=== PATIENT | male | born 1935 | race Caucasian/White ===

== ENCOUNTER 2019-04-20 13:57 | Inpatient (IN) ==
[2019-04-20] MEDS ORDERED: 0.9 % Sodium Chloride 1,000 ML IVC SCH (14:15)
[2019-04-20] MEDS ORDERED: Piperacillin/Tazobactam 3.375 GM in Water for inj. (sterile) 20 ML IVP ONE (14:31)
[2019-04-20] MEDS ORDERED: 0.9 % Sodium Chloride 1,000 ML IVC ONE (14:31)
[2019-04-20] MEDS ORDERED: Acetaminophen 650 MG RECTAL SUPP RC ONE (14:38)
[2019-04-20] MEDS ORDERED: Piperacillin/Tazobactam 3.375 GM in 0.9 % Sodium Chloride Mini Bag 100 ML IVPB ONE (14:39)
[2019-04-20 14:40] LABS: Basophils % 0.3 %; Hematocrit 42.3 % (37.5-50.1); Immature Granulocytes % 0.5 % (0-4); Lymphocytes # 1.2 K/mcL (0.6-4.6); Mean Corpuscular HGB Conc 33.1 g/dL (31.6-35.5); Mean Corpuscular Volume 93.6 fL (83.0-100.0); Mean Platelet Volume 9.6 fL (9.4-12.4); Monocytes # 0.7 K/mcL (0.0-1.3); Monocytes % 10.3 %; Neutrophils # 4.5 K/mcL (1.6-8.9); Platelet Count 157 K/mcL (140-400); Red Blood Count 4.52 M/mcL (4.19-5.50); Red Cell Distribution Width 13.4 % (11.5-14.5); Segmented Neutrophils % 69.9 %; White Blood Count 6.4 K/mcL (4.3-11.1)
[2019-04-20 14:50] LABS: INR 2.8; Prothrombin Time 31.4 Seconds (9.4-12.1)
[2019-04-20 14:51] LABS: Bilirubin,Urine Negative (Negative); Blood,Urine Moderate (Negative); Clarity,Urine Clear (Clear); Color,Urine Yellow (Yellow); Glucose,Urine (UA) Normal (Normal); Ketones,Urine Negative (Negative); Leukocyte Esterase,Urine Trace (Negative); Nitrite,Urine Positive (Negative); PH,Urine 5.5 pH Units (5.0-8.0); Protein,Urine 100 mg/dL (Neg-Trace); Urobilinogen,Urine Normal (Normal)
[2019-04-20 14:52] LABS: Bacteria,Urine Many per hpf (None-Few); Hyaline Casts,Urine None Seen per lpf (None-Few); Squamous Epithelial Cell,Urine Many per lpf (None-Few)
[2019-04-20 14:53] LABS: Activated Partial Thrombo Time 41.9 Seconds (26.0-36.0)
[2019-04-20 14:55] LABS: Alanine Aminotransferase 31 Units/L (7-52); Albumin 4.1 g/dL (3.5-5.7); Albumin/Globulin Ratio 1.4 (1.1-2.2); Alkaline Phosphatase 51 Units/L (34-104); Aspartate Amino Transferase 31 Units/L (13-39); BUN/Creatinine Ratio 17 (6-26); Bilirubin,Direct 0.4 mg/dL (0.0-0.2); Bilirubin,Total 1.4 mg/dL (0.3-1.0); Blood Urea Nitrogen 23 mg/dL (8-23); Calcium 8.9 mg/dL (8.6-10.3); Carbon Dioxide 29 mEq/L (23-29); Chloride 103 mEq/L (98-107); Glucose 177 mg/dL (70-105); Magnesium 1.9 mg/dL (1.6-2.6); Osmolality,Calculated 292 (280-300); Phosphorous 2.1 mg/dL (2.7-4.5); Potassium 4.2 mEq/L (3.5-5.1); Sodium 137 mEq/L (136-145); Total Protein 7.1 g/dL (6.4-8.9); Troponin I 0.08 ng/mL (< 0.04); eGFR For African Americans > 60 (> 60); eGFR For Non-African Americans 51 (> 60)
--- NOTE | 2019-04-20 14:55 | Emergency Department Note ---
Disposition Clinical Impression: Sepsis Qualifiers: Sepsis type: sepsis due to unspecified organism Sepsis acute organ dysfunction status: with acute organ dysfunction Severe sepsis acute organ dysfunction type: encephalopathy Severe sepsis shock status: without septic shock Qualified Code(s): A41.9 - Sepsis, unspecified organism UTI (urinary tract infection) Qualifiers: Urinary tract infection type: acute cystitis Hematuria presence: with hematuria Qualified Code(s): N30.01 - Acute cystitis with hematuria Pneumonia Qualifiers: Pneumonia type: due to unspecified organism Laterality: left Lung location: lower lobe of lung Qualified Code(s): J18.1 - Lobar pneumonia, unspecified organism Atrial fibrillation Qualifiers: Atrial fibrillation type: paroxysmal Qualified Code(s): I48.0 - Paroxysmal atrial fibrillation Altered mental status Qualifiers: Altered mental status type: unspecified Qualified Code(s): R41.82 - Altered mental status, unspecified Disposition: Admitted As Inpatient Condition: Fair Time of Disposition: 16:40 General Adult HPI - General Chief complaint: ED Neuro Symptoms/Deficit Stated complaint: possible stroke Time Seen by Provider: 04/20/19 14:01 Source: patient, family Mode of arrival: EMS Limitations: no limitations Nursing Notes Reviewed: Yes Vital Signs Reviewed: Yes - History of Present Illness HPI Narrative: Patient is a 83-year-old male with a past medical history of hypertension, prostate cancer, diabetes as well as sepsis presents to the ED for evaluation of altered mental status has been going on for the past 24 hours. Patient is brought in by EMS with reports of disorientation and confusion that way first noticed yesterday afternoon they state that he is alert and oriented 3 there was initially concern for possible stroke. Upon patient's 's arrival she states that the patient has been having cold-like symptoms over the past week with cough and congestion and states that he was seen on April [id number] by his PCP and diagnosed with virus then seen recently at urgent care and started on antibiotics for cough. Denying any localizing deficits such as weakness, numbness or tingling. Pain Scale: 0 - Related Data Home Medications Medication Instructions Recorded Confirmed Diltiazem CD (24hr) [Cardizem CD] 180 mg PO QPM 04/20/19 04/20/19 Fish Oil/Dha/Epa [Fish Oil 1,200 1 each PO DAILY 04/20/19 04/20/19 mg Fish Oil] Furosemide [Lasix] 20 mg PO DAILY 04/20/19 04/20/19 Lisinopril [Zestril] 5 mg PO DAILY 04/20/19 04/20/19 Oxybutynin Chloride [Ditropan XL] 15 mg PO DAILY 04/20/19 04/20/19 Terazosin [Hytrin] 5 mg PO QPM 04/20/19 04/20/19 Warfarin Sodium [Coumadin] 6 mg PO Q48H 04/20/19 04/20/19 Warfarin Sodium [Coumadin] 9 mg PO Q48H 04/20/19 04/20/19 Allergies Allergy/AdvReac Type Severity Reaction Status Date / Time No Known Drug Allergies Allergy See Verified 05/09/15 10:56 Comments Limitations: ROS unobtainable due to patients medical condition Past Medical History - Past Medical History Medical history: Reports: hypertension Surgical history: Reports: other Psychiatric history: Reports: no psych history - Social History Smoking Status: Former smoker Smokeless Tobacco Status: No Alcohol use: Reports: none Drug use: Reports: none Physical Exam - General Limitations: altered mental status General appearance: alert, obese - Head Head exam: atraumatic, normocephalic, normal inspection - Eye Eye exam: Present: normal appearance, PERRL, EOMI - ENT ENT exam: normal exam, normal oropharynx, mucous membranes dry - Neck Neck exam: Present: normal inspection, full ROM, trachea midline - Chest Chest inspection: Present: normal inspection, symmetric chest wall rise - Respiratory Respiratory exam: Present: normal lung sounds bilaterally, wheezes (faint wheeze in bases). Absent: respiratory distress - Cardiovascular Cardiovascular exam: Present: tachycardia, irregular rhythm, +S1, +S2 - Abdominal Exam Abdominal exam: Present: soft, Non-Tender, distention, normal bowel sounds, other (umbilical hernia) - Extremities Exam Extremities exam: Present: normal inspection, full ROM. Absent: tenderness, pedal edema - Back Exam Back exam: Present: normal inspection. Absent: tenderness - Neurological Exam Neurological exam: Present: alert, other (oriented x 2) - Expanded Neurological Exam Patient oriented to: Present: person, place Speech: Present: fluid speech Cranial nerves: EOM function (II, III, IV, ): Normal, facial sensation (V): Normal, facial palsy (VII): Normal, gag reflex (IX): Normal, spinal accessory function (XI): Normal, tongue deviation (XII): Normal Cerebellar function: normal gait Motor strength - LUE: 5/5 Motor strength - RUE: 5/5 Motor strength - LLE: 5/5 Motor strength - RLE: 5/5 Sensory exam upper extremity: light touch: Normal Sensory exam lower extremity: light touch: Normal Coma Scale Eye Opening: Spontaneous Coma Scale Motor Response: Obeys Commands Coma Scale Verbal Response: Confused Coma Scale Total: 14 - Psychiatric Psychiatric exam: Present: normal affect, normal mood - Skin Skin exam: Present: warm, dry, intact, normal color Course Course Narrative: Patient is a 3 female presenting for altered mental status initially there was concern for stroke however patient is febrile and tachycardic episode recent infectious symptoms. His neurological exam other than his orientation appears to be intact. Possible source is pneumonia versus given his history. He also undergo CT scan at a pelvis given his history of septic kidney stones which his states he did not have any abdominal or back symptoms at that time. She states that he has appeared similar in the past when he was sick. Upon review of his medical records appears is on Coumadin for A. fib this EKG is showing atrial fibrillation a rate of 1:30 which is suspect is due to fever and sepsis. Receive a 1 L bolus of fluids and he will be reevaluated. Rectal tylenol for fever. - Reevaluation(s) Reevaluation #1: Patient's lab work was significant for an elevation of his troponin of 0.08 which I suspect is due to demand ischemia. His chest x-ray was read as negative by the radiologist however upon my review not completely sure that there is not a pneumonia in the left lower lobe due to cerumen difficulty with identifying the left heart border. Patient's urine is also positive for infection. He was started on broad-spectrum antibiotic coverage received a total of a 1 L bolus. He received a full dose of rectal Tylenol and was continued to be febrile sees given a dose of rectal aspirin. Given that his blood pressure is been stable and he is due for his afternoon meds he was also given a 10 mg IV dose of Cardizem for his A. fib with RVR which continues to be in the 130s. I discussed this with the patient's family member at bedside as well as the patient continues to be disoriented discussed with the hospitalist who accepted the patient for admission for further evaluation and treatment. Time: 17:31 Vital Signs Temperature 103.1 F H 04/20/19 14:11 Pulse Rate 130 04/20/19 14:11 Respiratory Rate 26 04/20/19 14:11 Blood Pressure 159/88 04/20/19 14:11 O2 Sat by Pulse Oximetry 93 04/20/19 14:11 Temperature 102.4 F H 04/20/19 16:02 Pulse Rate 127 04/20/19 16:02 Respiratory Rate 24 04/20/19 16:02 Blood Pressure 130/86 04/20/19 16:02 O2 Sat by Pulse Oximetry 93 04/20/19 16:02 Oxygen Delivery Oxygen Delivery Nasal Cannula Medical Decision Making - Medical Records Medical records reviewed: Yes I reviewed the patient's medical records. - Lab Data Lab results reviewed: Yes I reviewed the patient's lab results. Result diagrams: 04/21/19 02:08 04/21/19 02:08 Lab Results 04/20/19 04/20/19 04/20/19 Range/Units 14:10 14:10 14:10 WBC 6.4 (4.3-11.1) K/mcL RBC 4.52 (4.19-5.50) M/mcL Hgb 14.0 (12.9-16.9) g/dL Hct 42.3 (37.5-50.1) % MCV 93.6 (83.0-100.0) fL MCH 31.0 (28.0-33.3) pg MCHC 33.1 (31.6-35.5) g/dL RDW 13.4 (11.5-14.5) % Plt Count 157 (140-400) K/mcL MPV 9.6 (9.4-12.4) fL Immature Gran % 0.5 (0-4) % Seg Neutrophils % 69.9 % Lymphocytes % 19.0 % Monocytes % 10.3 % Eosinophils % 0.0 % Basophils % 0.3 % Neutrophils # 4.5 (1.6-8.9) K/mcL Lymphocytes # 1.2 (0.6-4.6) K/mcL Monocytes # 0.7 (0.0-1.3) K/mcL Eosinophils # 0.0 (0.0-0.6) K/mcL Basophils # 0.0 (0.0-0.2) K/mcL PT 31.4 H (9.4-12.1) Seconds INR 2.8 APTT 41.9 H (26.0-36.0) Seconds Sodium (136-145) mEq/L Potassium (3.5-5.1) mEq/L Chloride (98-107) mEq/L Carbon Dioxide (23-29) mEq/L BUN (8-23) mg/dL Creatinine (0.70-1.30) mg/dL Est GFR ( Amer) (> 60) Est GFR (Non-Af Amer) (> 60) BUN/Creatinine Ratio (6-26) Glucose (70-105) mg/dL Calculated Osmolality (280-300) Lactic Acid (0.5-2.2) mmol/L Calcium (8.6-10.3) mg/dL Phosphorus (2.7-4.5) mg/dL Magnesium (1.6-2.6) mg/dL Total Bilirubin (0.3-1.0) mg/dL Direct Bilirubin (0.0-0.2) mg/dL Indirect Bilirubin (0.0-1.2) mg/dL AST (13-39) Units/L ALT (7-52) Units/L Alkaline Phosphatase (34-104) Units/L Troponin I (< 0.04) ng/mL B-Natriuretic Peptide 310 H (Less than 100) pg/mL Serum Total Protein (6.4-8.9) g/dL Albumin (3.5-5.7) g/dL Globulin (2.4-3.5) g/dL Albumin/Globulin Ratio (1.1-2.2) Procalcitonin (0.00-0.15) ng/mL Urine Color (Yellow) Urine Clarity (Clear) Urine pH (5.0-8.0) pH Units Ur Specific [place] (1.010-1.025) Urine Protein (Neg-Trace) mg/dL Urine Glucose (UA) (Normal) mg/dL Urine Ketones (Negative) mg/dL Urine Blood (Negative) Urine Nitrite (Negative) Urine Bilirubin (Negative) Urine Urobilinogen (Normal) mg/dL Ur Leukocyte Esterase (Negative) Urine Microscopic RBC (0-3) per hpf Urine Microscopic WBC (0-3) per hpf Ur Squamous Epith Cells (None-Few) per lpf Urine Bacteria (None-Few) per hpf Hyaline Casts (None-Few) per lpf Ur Culture Indicated? (NO) 04/20/19 04/20/19 04/20/19 Range/Units 14:10 14:10 14:40 WBC (4.3-11.1) K/mcL RBC (4.19-5.50) M/mcL Hgb (12.9-16.9) g/dL Hct (37.5-50.1) % MCV (83.0-100.0) fL MCH (28.0-33.3) pg MCHC (31.6-35.5) g/dL RDW (11.5-14.5) % Plt Count (140-400) K/mcL MPV (9.4-12.4) fL Immature Gran % (0-4) % Seg Neutrophils % % Lymphocytes % % Monocytes % % Eosinophils % % Basophils % % Neutrophils # (1.6-8.9) K/mcL Lymphocytes # (0.6-4.6) K/mcL Monocytes # (0.0-1.3) K/mcL Eosinophils # (0.0-0.6) K/mcL Basophils # (0.0-0.2) K/mcL PT (9.4-12.1) Seconds INR APTT (26.0-36.0) Seconds Sodium 137 (136-145) mEq/L Potassium 4.2 (3.5-5.1) mEq/L Chloride 103 (98-107) mEq/L Carbon Dioxide 29 (23-29) mEq/L BUN 23 (8-23) mg/dL Creatinine 1.33 H (0.70-1.30) mg/dL Est GFR ( Amer) > 60 (> 60) Est GFR (Non-Af Amer) 51 L (> 60) BUN/Creatinine Ratio 17 (6-26) Glucose 177 H (70-105) mg/dL Calculated Osmolality 292 (280-300) Lactic Acid 1.2 (0.5-2.2) mmol/L Calcium 8.9 (8.6-10.3) mg/dL Phosphorus 2.1 L (2.7-4.5) mg/dL Magnesium 1.9 (1.6-2.6) mg/dL Total Bilirubin 1.4 H (0.3-1.0) mg/dL Direct Bilirubin 0.4 H (0.0-0.2) mg/dL Indirect Bilirubin 1.0 (0.0-1.2) mg/dL AST 31 (13-39) Units/L ALT 31 (7-52) Units/L Alkaline Phosphatase 51 (34-104) Units/L Troponin I 0.08 H* (< 0.04) ng/mL B-Natriuretic Peptide (Less than 100) pg/mL Serum Total Protein 7.1 (6.4-8.9) g/dL Albumin 4.1 (3.5-5.7) g/dL Globulin 3.0 (2.4-3.5) g/dL Albumin/Globulin Ratio 1.4 (1.1-2.2) Procalcitonin (0.00-0.15) ng/mL Urine Color Yellow (Yellow) Urine Clarity Clear (Clear) Urine pH 5.5 (5.0-8.0) pH Units Ur Specific [place] 1.020 (1.010-1.025) Urine Protein 100 H (Neg-Trace) mg/dL Urine Glucose (UA) Normal (Normal) mg/dL Urine Ketones Negative (Negative) mg/dL Urine Blood Moderate H (Negative) Urine Nitrite Positive A (Negative) Urine Bilirubin Negative (Negative) Urine Urobilinogen Normal (Normal) mg/dL Ur Leukocyte Esterase Trace H (Negative) Urine Microscopic RBC 3-5 H (0-3) per hpf Urine Microscopic WBC 3-5 H (0-3) per hpf Ur Squamous Epith Cells Many H (None-Few) per lpf Urine Bacteria Many H (None-Few) per hpf Hyaline Casts None Seen (None-Few) per lpf Ur Culture Indicated? YES A (NO) 04/20/19 Range/Units 15:09 WBC (4.3-11.1) K/mcL RBC (4.19-5.50) M/mcL Hgb (12.9-16.9) g/dL Hct (37.5-50.1) % MCV (83.0-100.0) fL MCH (28.0-33.3) pg MCHC (31.6-35.5) g/dL RDW (11.5-14.5) % Plt Count (140-400) K/mcL MPV (9.4-12.4) fL Immature Gran % (0-4) % Seg Neutrophils % % Lymphocytes % % Monocytes % % Eosinophils % % Basophils % % Neutrophils # (1.6-8.9) K/mcL Lymphocytes # (0.6-4.6) K/mcL Monocytes # (0.0-1.3) K/mcL Eosinophils # (0.0-0.6) K/mcL Basophils # (0.0-0.2) K/mcL PT (9.4-12.1) Seconds INR APTT (26.0-36.0) Seconds Sodium (136-145) mEq/L Potassium (3.5-5.1) mEq/L Chloride (98-107) mEq/L Carbon Dioxide (23-29) mEq/L BUN (8-23) mg/dL Creatinine (0.70-1.30) mg/dL Est GFR ( Amer) (> 60) Est GFR (Non-Af Amer) (> 60) BUN/Creatinine Ratio (6-26) Glucose (70-105) mg/dL Calculated Osmolality (280-300) Lactic Acid (0.5-2.2) mmol/L Calcium (8.6-10.3) mg/dL Phosphorus (2.7-4.5) mg/dL Magnesium (1.6-2.6) mg/dL Total Bilirubin (0.3-1.0) mg/dL Direct Bilirubin (0.0-0.2) mg/dL Indirect Bilirubin (0.0-1.2) mg/dL AST (13-39) Units/L ALT (7-52) Units/L Alkaline Phosphatase (34-104) Units/L Troponin I (< 0.04) ng/mL B-Natriuretic Peptide (Less than 100) pg/mL Serum Total Protein (6.4-8.9) g/dL Albumin (3.5-5.7) g/dL Globulin (2.4-3.5) g/dL Albumin/Globulin Ratio (1.1-2.2) Procalcitonin 0.04 (0.00-0.15) ng/mL Urine Color (Yellow) Urine Clarity (Clear) Urine pH (5.0-8.0) pH Units Ur Specific [place] (1.010-1.025) Urine Protein (Neg-Trace) mg/dL Urine Glucose (UA) (Normal) mg/dL Urine Ketones (Negative) mg/dL Urine Blood (Negative) Urine Nitrite (Negative) Urine Bilirubin (Negative) Urine Urobilinogen (Normal) mg/dL Ur Leukocyte Esterase (Negative) Urine Microscopic RBC (0-3) per hpf Urine Microscopic WBC (0-3) per hpf Ur Squamous Epith Cells (None-Few) per lpf Urine Bacteria (None-Few) per hpf Hyaline Casts (None-Few) per lpf Ur Culture Indicated? (NO) - Radiology Data Radiology results reviewed: Yes I reviewed the patient's radiology results. Chest X-Ray 04/20/19 14:11 IMPRESSION: 1. Interval resolution of previously seen streaky opacities in the left midlung zone. 2. The visible lungs are without pneumothorax, pleural effusion or new focal airspace opacity. 3. Stable cardiomegaly. D/ / Aric Llanos / Aric Llanos Interpreting Provider: Aric Llanos Abdomen/Pelvis CT 04/20/19 14:14 IMPRESSION: 1. Mild ileus involving the small bowel in the left abdomen. No evidence of bowel obstruction or perforation. 2. Prostatomegaly. 3. Mild nonspecific mesenteric thickening with scattered mildly prominent lymph nodes. D/ / 04/20/2019 15:37:53 Maryellen Menjivar MD / [facility] Interpreting Provider: Maryellen Menjivar MD Head CT 04/20/19 14:14 IMPRESSION: No acute intracranial abnormality. Mucosal thickening paranasal sinuses. D/ / Pradeep Dillard / Pradeep Dillard Interpreting Provider: Pradeep Dillard - EKG Data EKG #1 EKG attestation: Yes I reviewed and interpreted this EKG. EKG results narrative: EKG done at 14:03 shows atrial fibrillation a rate 130 bpm. Normal axis. Intervals within normal limits. New when compared to old EKG in April 2016 however upon review of patient's medical record he does have history of atrial fibrillation. Critical Care Time Critical Care Time: Yes Total Critical Care Time: 35 Attestation: see attestation Attestation Statement - Attestation Attestation: I examined this patient and my medical decision-making was reviewed with the Resident Physician. I agree with the documented findings, disposition and treatment plan as described except to the extent set forth below. Patient presents here with some confusion, fever. The patient has had a upper respiratory symptoms, cough. Patient is mildly hypoxic on arrival. The patient does have a history of atrial fibrillation. The patient is found to be in atrial fibrillation with a heart rate around 120 to 1:30 upon arrival. I did review the EKG and agree with the resident's interpretation of atrial fibrillation. Do not see evidence of significant ischemia. The patient at this point I am did have a septic workup done here in the emergency room. Patient does appear to have a mild UTI, the patient possibly could have a early pneumonia. At this point in time however the patient was treated with antibiotics, patient has not no other nuchal rigidity, the patient has no abdominal pain on examination. The patient at this point in time was admitted to the hospitalist. Patient has had no evidence of hypotension here in emergency room. CRITICAL CARE TIME OF 35 MINUTES PERFORMING THIS INDIVIDUAL OUTSIDE OF SEPARATELY BILLABLE PROCEDURES. THIS INCLUDES BEDSIDE EVALUATION, INTERPRETATION OF EKG AND LAB TESTS AND CONSULTATIONS.
[2019-04-20] MEDS ORDERED: Azithromycin 500 MG in 0.9 % Sodium Chloride 250 ML IVPB ONE (15:03)
[2019-04-20] MEDS ORDERED: Ondansetron 4 MG/2 ML VIAL IVP PRN (18:10)
[2019-04-20] MEDS ORDERED: Naloxone 0.4 MG/ML INJ IVP PRN (18:10)
--- NOTE | 2019-04-20 18:35 | Internal Med History&Physical ---
Date of Encounter: 04/20/19 Time of Encounter: 17:00 Internal Medicine - H&P: HPI Admitted From: Emergency Dept Plans for Post Hospital Care: Home History of present illness: Mr. Mora is a 83 year old male with a past medical history of type 2 diabetes, CKD stage III, history of prior nephrolithiasis hypertension who was brought in by his due to concerns for altered mentation. The is currently unavailable to provide any history and patient appears encephalopathic has this history was obtained from the medical records and from the ED records. It appears he was brought in by EMS after his noticed that he was confused the day prior. There were initial concerns of possible stroke however his 's that patient was having chills. Also per report patient was seen by his primary care physician in April 14 for a viral type illness and was recently seen at the urgent care and was prescribed antibiotics for cough. At the ED patient was noted to be meeting criteria for sepsis he remained febrile despite acetaminophen suppositories and aspirin suppositories. His nurse at the ED noted some bright red blood per rectum. CBC was unremarkable BMP revealed slightly elevated serum creatinine 1.33 much improved from his prior baseline ranging from 1.5-2 dating back to 2017, no recent serum creatinine from 2019. Other significant lab finding was his mildly elevated troponin, and his urinalysis suggestive of gram-negative UTI with positive nitrites. His CT head was unremarkable however CT abdomen and pelvis is suggestive of ileus but no obstruction or perforation and prostatomegaly. Past Med Surg Social Fam HX - Past Medical History Medical history: hypertension Additional medical history: prostate cancer Psychiatric history: no psych history - Past Surgical History Surgical History: other Additional surgical history: precancrous spot on cheek and head removed - Social History Smoking Status: Former smoker Smokeless Tobacco Status: No Alcohol use: none Drug use: none - Family History Mother Hx Family Cardiac Disorders: Yes (HTN) Brother Living Status: Still Living Hx Family Cancer: Yes (Prostate) Internal Medicine - H&P: Meds Diltiazem CD (24hr) [Cardizem CD] 180 mg PO QPM 04/20/19 [History] Fish Oil/Dha/Epa [Fish Oil 1,200 mg Fish Oil] 1 each PO DAILY 04/20/19 [History] Furosemide [Lasix] 20 mg PO DAILY 04/20/19 [History] Lisinopril [Zestril] 5 mg PO DAILY 04/20/19 [History] Oxybutynin Chloride [Ditropan XL] 15 mg PO DAILY 04/20/19 [History] Terazosin [Hytrin] 5 mg PO QPM 04/20/19 [History] Warfarin Sodium [Coumadin] 6 mg PO Q48H 04/20/19 [History] Warfarin Sodium [Coumadin] 9 mg PO Q48H 04/20/19 [History] Allergy/AdvReac Type Severity Reaction Status Date / Time No Known Drug Allergies Allergy See Verified 05/09/15 10:56 Comments All Systems PM: A 10-system review of systems was performed and is negative for pertinent findings except as documented above in the HPI. Review of systems: Unable to obtain patient is encephalopathic - Constitutional Vitals: Temp Pulse Resp BP Pulse Ox 100.4 F H 108 22 119/81 93 04/20/19 17:49 04/20/19 17:49 04/20/19 17:49 04/20/19 17:49 04/20/19 17:49 Exam: GENERAL: Mildly distressed, responds to questions somewhat but incoherent SKIN: No skin lesions or rashes, non-jaundiced EYES: Pinpoint but reactive no sclerae icterus HENT: Head atraumatic, no facial asymmetry, frontal and maxillary sinus non- tender, visualized portion oropharynx and mucosa dry NECK: No cervical lymphadenopathy, trachea midline, thyroid is palpable does not appear enlarged LUNGS: Diminished breath sounds likely due to poor respiratory effort no wheeze, rhonchi, rales or crackles. Non labored respirations HEART: Normal rate and rhythm but tachycardic, no murmurs or rubs ABDOMEN: soft, non-tender, distended, bowel sounds x 4 normoactive EXTRMITIES: No LE asymmetry, No LE edema, pedal pulses 1+ and radial pulses 2 + and equal bilaterally NEURO: Responds to commands somewhat but incoherent, responses painful stimuli PSYCH: Deferred Internal Med - H&P Results - Labs CBC & Chem 7: 04/20/19 14:10 04/20/19 14:10 Labs: Short CBC 04/20/19 Range/Units 14:10 WBC 6.4 (4.3-11.1) K/mcL Hgb 14.0 (12.9-16.9) g/dL Hct 42.3 (37.5-50.1) % Plt Count 157 (140-400) K/mcL Neutrophils # 4.5 (1.6-8.9) K/mcL BMP 04/20/19 14:10 Sodium 137 Potassium 4.2 Chloride 103 Carbon Dioxide 29 BUN 23 Creatinine 1.33 H Glucose 177 H Calcium 8.9 Cardiac Enzymes 04/20/19 Range/Units 14:10 Troponin I 0.08 H* (< 0.04) ng/mL Liver Function 04/20/19 Range/Units 14:10 Total Bilirubin 1.4 H (0.3-1.0) mg/dL Direct Bilirubin 0.4 H (0.0-0.2) mg/dL AST 31 (13-39) Units/L ALT 31 (7-52) Units/L Alkaline Phosphatase 51 (34-104) Units/L Albumin 4.1 (3.5-5.7) g/dL Urine 04/20/19 Range/Units 14:40 Urine Color Yellow (Yellow) Urine Clarity Clear (Clear) Urine pH 5.5 (5.0-8.0) pH Units Ur Specific [place] 1.020 (1.010-1.025) Urine Protein 100 H (Neg-Trace) mg/dL Urine Glucose (UA) Normal (Normal) mg/dL - Impressions ITS Impressions Chest X-Ray 04/20/19 14:11 IMPRESSION: 1. Interval resolution of previously seen streaky opacities in the left midlung zone. 2. The visible lungs are without pneumothorax, pleural effusion or new focal airspace opacity. 3. Stable cardiomegaly. D/ / Aric Llanos / Aric Llanos Interpreting Provider: Aric Llanos Abdomen/Pelvis CT 04/20/19 14:14 IMPRESSION: 1. Mild ileus involving the small bowel in the left abdomen. No evidence of bowel obstruction or perforation. 2. Prostatomegaly. 3. Mild nonspecific mesenteric thickening with scattered mildly prominent lymph nodes. D/ / 04/20/2019 15:37:53 Maryellen Menjivar MD / rebecca Interpreting Provider: Maryellen Menjivar MD Head CT 04/20/19 14:14 IMPRESSION: No acute intracranial abnormality. Mucosal thickening paranasal sinuses. D/ / Pradeep Dillard / Pradeep Dillard Interpreting Provider: Pradeep Dillard - Assessment and Plan (1) Sepsis Current Visit: Yes Status: Acute Assessment and plan: Appears secondary to UTI blood cultures urine culture is pending, UA is positive for nitrites most likely gram-negative organism continue Zosyn. Due to recurrence of patient was sent visits to the urgent care center for cough would add levofloxacin for possible pneumonia coverage although chest x-ray was unremarkable but in the setting of dehydration Qualifiers: Sepsis type: sepsis due to unspecified organism Sepsis acute organ dysfunction status: with acute organ dysfunction Severe sepsis acute organ dysfunction type: encephalopathy Severe sepsis shock status: without septic shock Qualified Code(s): A41.9 - Sepsis, unspecified organism; R65.20 - Severe sepsis without septic shock; G93.40 - Encephalopathy, unspecified (2) Acute encephalopathy Current Visit: Yes Status: Acute Assessment and plan: In the setting of sepsis which is been attributed to UTI based on UA. CT head was unremarkable would check ammonia level and TSH tomorrow morning (3) Troponin I above reference range Current Visit: Yes Status: Acute Assessment and plan: Troponin 0.08 on admission will trend (4) A-fib Current Visit: Yes Status: Acute Assessment and plan: On telemetry tachycardic appears he is on warfarin, INR admission is 2.8 and diltiazem continue telemetry Qualifiers: Atrial fibrillation type: paroxysmal Qualified Code(s): I48.0 - Paroxysmal atrial fibrillation (5) Urinary tract infection Current Visit: Yes Status: Acute Assessment and plan: UA revealed positive nitrite culture spending patient on levofloxacin and Zosyn for now Qualifiers: Urinary tract infection type: acute cystitis Hematuria presence: with hematuria Qualified Code(s): N30.01 - Acute cystitis with hematuria (6) DAMION (acute kidney injury) Current Visit: No Status: Acute Assessment and plan: In the setting of severe sepsis we will start patient on gentle hydration at 50 ML's LR, trend BMP (7) DVT prophylaxis Current Visit: Yes Status: Acute Assessment and plan: Heparin subcutaneous - Time Spent With Patient Total time spent is greater than 50% in coordination of care (as documented) at patient's floor/unit and/or counseling patient:
[2019-04-20] MEDS ORDERED: Ringers Solution, Lactated 1,000 ML IVC SCH (18:45)
[2019-04-20] MEDS ORDERED: D5% in Water 1,000 ML IVC PRN (19:08)
[2019-04-20] MEDS ORDERED: *HR* Dextrose 50 % in Water (Syg) 50 ML SYRINGE IVP PRN (19:08)
[2019-04-20] MEDS ORDERED: Dextrose Gel 15 GM/37.5 ML TUBE PO PRN ×2 (19:08)
[2019-04-20] MEDS: levoFLOXacin 500 MG/100 ML 500 MG/100 ML BAG IVPB SCH (19:53)
[2019-04-20] MEDS: Acetaminophen IV 1,000 MG/100 ML INFUS..BTL IVPB SCH (23:48)
[2019-04-20] MEDS: Piperacillin/Tazobactam 3.375 GM in 0.9 % Sodium Chloride Mini Bag 100 ML IVPB SCH (23:51)
[2019-04-21] MEDS ORDERED: *HR* Heparin 5,000 UNIT/ML VIAL SQ SCH
[2019-04-21 02:25] LABS: Basophils % 0.1 %; Hematocrit 38.7 % (37.5-50.1); Hemoglobin 12.8 g/dL (12.9-16.9); Immature Granulocytes % 0.6 % (0-4); Lymphocytes # 1.4 K/mcL (0.6-4.6); Lymphocytes % 21.1 %; Mean Corpuscular HGB Conc 33.1 g/dL (31.6-35.5); Mean Corpuscular Hemoglobin 30.6 pg (28.0-33.3); Mean Corpuscular Volume 92.6 fL (83.0-100.0); Mean Platelet Volume 9.7 fL (9.4-12.4); Monocytes % 13.9 %; Neutrophils # 4.4 K/mcL (1.6-8.9); Platelet Count 135 K/mcL (140-400); Red Blood Count 4.18 M/mcL (4.19-5.50); Red Cell Distribution Width 13.8 % (11.5-14.5); Segmented Neutrophils % 64.3 %; White Blood Count 6.8 K/mcL (4.3-11.1)
[2019-04-21 02:36] LABS: INR 2.7; Prothrombin Time 30.2 Seconds (9.4-12.1)
[2019-04-21 02:43] LABS: BUN/Creatinine Ratio 17 (6-26); Blood Urea Nitrogen 21 mg/dL (8-23); Calcium 8.1 mg/dL (8.6-10.3); Carbon Dioxide 22 mEq/L (23-29); Chloride 108 mEq/L (98-107); Glucose 157 mg/dL (70-105); Magnesium 1.9 mg/dL (1.6-2.6); Osmolality,Calculated 294 (280-300); Potassium 3.8 mEq/L (3.5-5.1); Sodium 139 mEq/L (136-145); eGFR For African Americans > 60 (> 60); eGFR For Non-African Americans 55 (> 60)
[2019-04-21 02:46] LABS: Albumin 3.5 g/dL (3.5-5.7); Albumin/Globulin Ratio 1.3 (1.1-2.2); Bilirubin,Direct 0.5 mg/dL (0.0-0.2); Bilirubin,Indirect 1.1 mg/dL (0.0-1.2); Bilirubin,Total 1.6 mg/dL (0.3-1.0); Globulin 2.7 g/dL (2.4-3.5); Total Protein 6.2 g/dL (6.4-8.9)
[2019-04-21] MEDS: Insulin LISPRO 300 UNITS/3 ML VIAL SQ SCH ×4 (06:43→17:04)
[2019-04-21 07:26] LABS: Estimated Average Glucose 143 mg/dl
[2019-04-21 08:21] LABS: Triiodothyronine (T3) Free 1.74 pg/mL (2.50-3.90)
[2019-04-21] MEDS: Acetaminophen IV 1,000 MG/100 ML INFUS..BTL IVPB SCH ×2 (09:49→16:57)
[2019-04-21] MEDS: Piperacillin/Tazobactam 3.375 GM in 0.9 % Sodium Chloride Mini Bag 100 ML IVPB SCH ×2 (09:51→17:00)
[2019-04-21] MEDS ORDERED: WARFARIN SODIUM 6 MG PO SCH (11:00)
[2019-04-21] MEDS ORDERED: WARFARIN SODIUM 9 MG PO SCH (11:00)
--- NOTE | 2019-04-21 14:49 | Internal Med Progress Note ---
Hospitalist Progress Note - Encounter Date of Encounter: 04/21/19 Time of Encounter: 13:45 - Subjective Interval History: Mr Mora is more alert and conversant today he reports feeling much better. His Nataliia can be reached at [phone]. She did call from the patient has established with the urologist given his history of prostate cancer and has appointments in the upcoming months as outpatient. Patient does admit to history of urinary incontinence since diagnosed with prostate cancer years ago GEN: Denies fever, chills or malaise HEENT: Denies headache blurriness, or dysphagia RESP: Denies SOB or cough CV: Denies chest pain or palpitations GI: Denies Nausea, vomiting, diarrhea or constipation Reviewed current in hospital medications with modifications see orders Reviewed Routine labs - Exam Vitals: Temp Pulse Resp BP Pulse Ox 98.3 F 90 16 105/63 97 04/21/19 11:39 04/21/19 11:59 04/21/19 11:39 04/21/19 11:39 04/21/19 13:04 Exam: GEN: NAD, A&O x 3, Pleasant and conversant, at the bedside SKIN: [place] warm acyanotic not jaundice HEART: RRR, no murmurs LUNGS: CTA no wheeze or crackles, overall non labored ABDOMEN; Soft, non tender or distended, BS x 4 normactive EXT: No LE edema, Pedal pulses 1+, radial pulses 2+ : Parada catheter noted with cloudy concentrated ahsan colored urine in the reservoir PSYCH: Mood and affect is appropriate - Assessment and Plan (1) Urinary tract infection Current Visit: Yes Status: Acute Assessment and Plan: UA revealed positive nitrite urine culture revealed gram-negative gloria patient on levofloxacin and Zosyn for now, await culture and sensitivity prior to descalating antibiotics (2) Sepsis Current Visit: Yes Status: Acute Assessment and Plan: Appears secondary to UTI blood cultures pending urine culture reveals gram-negative rods. Of note UA is positive for nitrites most likely gram- negative organism continue Zosyn. Due to recurrence of patient was sent visits to the urgent care center for cough would add levofloxacin for possible pneumonia coverage although chest x-ray was unremarkable but in the setting of dehydration (3) Acute encephalopathy Current Visit: Yes Status: Acute Assessment and Plan: In the setting of sepsis which is been attributed to UTI based on UA. CT head was unremarkable would check ammonia level and TSH suggestive of euthyroid sick syndrome, his encephalopathy is now resolved back to baseline a lot (4) Troponin I above reference range Current Visit: Yes Status: Acute Assessment and Plan: Troponin 0.08 on admission, trended up to 0.14 patient denies any chest pain this is in the setting of severe sepsis. Patient will benefit from outpatient ischemic workup upon discharge once his acute sepsis has resolved (5) A-fib Current Visit: Yes Status: Acute Assessment and Plan: On telemetry rate controlled he is on warfarin, INR admission is 2.8 and diltiazem continue telemetry, pharmacy to dose warfarin given his acute stay, appreciate the input (6) DAMION (acute kidney injury) Current Visit: Yes Status: Acute Assessment and Plan: In the setting of severe sepsis we will start patient on gentle hydration at 50 ML's LR, trend BMP, resolved with IV hydration will DC hydration encouraged po intake (7) DVT prophylaxis Current Visit: Yes Status: Acute Assessment and Plan: On warfarin INR is therapeutic (8) Euthyroid sick syndrome Current Visit: Yes Status: Acute Assessment and Plan: TSH is suppressed 0.24 with normal free T4 0.7 with low free T3 1 0.74 in the setting of sepsis patient will need thyroid function test repeated in the next 3-6 months - Time Spent with Patient Total time spent is greater than 50% in coordination of care (as documented) at patient's floor/unit and/or counseling patient: Internal Medicine: Result - Labs CBC & Chem 7: 04/21/19 02:08 04/21/19 02:08 Labs: Short CBC 04/21/19 Range/Units 02:08 WBC 6.8 (4.3-11.1) K/mcL Hgb 12.8 L (12.9-16.9) g/dL Hct 38.7 (37.5-50.1) % Plt Count 135 L (140-400) K/mcL Neutrophils # 4.4 (1.6-8.9) K/mcL BMP 04/20/19 04/21/19 14:10 02:08 Sodium 137 139 Potassium 4.2 3.8 Chloride 103 108 H Carbon Dioxide 29 22 L BUN 23 21 Creatinine 1.33 H 1.25 Glucose 177 H 157 H Calcium 8.9 8.1 L Cardiac Enzymes 04/20/19 04/20/19 04/21/19 Range/Units 14:10 20:14 02:08 Troponin I 0.08 H* 0.14 H* 0.14 H* (< 0.04) ng/mL Liver Function 04/20/19 04/21/19 Range/Units 14:10 02:08 Total Bilirubin 1.4 H 1.6 H (0.3-1.0) mg/dL Direct Bilirubin 0.4 H 0.5 H (0.0-0.2) mg/dL AST 31 26 (13-39) Units/L ALT 31 32 (7-52) Units/L Alkaline Phosphatase 51 42 (34-104) Units/L Albumin 4.1 3.5 (3.5-5.7) g/dL Urine 04/20/19 Range/Units 14:40 Urine Color Yellow (Yellow) Urine Clarity Clear (Clear) Urine pH 5.5 (5.0-8.0) pH Units Ur Specific [place] 1.020 (1.010-1.025) Urine Protein 100 H (Neg-Trace) mg/dL Urine Glucose (UA) Normal (Normal) mg/dL - ABG Interpretation ABG results: PT/INR, D-dimer PT 30.2 Seconds (9.4-12.1) H 04/21/19 02:08 - Impressions Impressions Abdomen/Pelvis CT 04/20/19 14:14 IMPRESSION: 1. Mild ileus involving the small bowel in the left abdomen. No evidence of bowel obstruction or perforation. 2. Prostatomegaly. 3. Mild nonspecific mesenteric thickening with scattered mildly prominent lymph nodes. D/ / 04/20/2019 15:37:53 Maryellen Menjivar MD / [facility] Interpreting Provider: Maryellen Menjivar MD Head CT 04/20/19 14:14 IMPRESSION: No acute intracranial abnormality. Mucosal thickening paranasal sinuses. D/ / Pradeep Dillard / Pradeep Dillard Interpreting Provider: Pradeep Dillard Consult Discharge Plan - Plan (1) Urinary tract infection Qualifiers: Urinary tract infection type: acute cystitis Hematuria presence: with hematuria Qualified Code(s): N30.01 - Acute cystitis with hematuria (2) Sepsis Qualifiers: Sepsis type: sepsis due to unspecified organism Sepsis acute organ dysfunc tion status: with acute organ dysfunction Severe sepsis acute organ dysfunction type: encephalopathy Severe sepsis shock status: without septic shock Qualified Code(s): A41.9 - Sepsis, unspecified organism; R65.20 - Severe sepsis without septic shock; G93.40 - Encephalopathy, unspecified (5) A-fib Qualifiers: Atrial fibrillation type: paroxysmal Qualified Code(s): I48.0 - Paroxysmal atrial fibrillation
[2019-04-21] MEDS: Diltiazem CD (24hr) 180 MG CAPSULE PO SCH (16:55)
--- NOTE | 2019-04-21 17:47 | Electrocardiograph Report ---
[address] [place], [place] [address] Test Date: 2019-04-20 Pat Name: Tobi Mora Department: EXAM4 Room: 2N14 Gender: M Residential Advisor: : [id number] Requested By: Negro Cano Order Number: [id number] Reading MD: Roseline Montez Measurements Intervals [place] Rate: 130 P: [place]: QRS: -31 QRSD: 159 T: 56 QT: 334 QTc: 492 Interpretive Statements Atrial fibrillation Right bundle branch block Left axis deviation Electronically Signed On 04-21-2019 17:45:30 EDT by Roseline Montez
[2019-04-21] MEDS ORDERED: Warfarin perPT PO PRN (18:00)
[2019-04-21] MEDS ORDERED: *HR* Warfarin 3 MG TABLET PO ONE (18:00)
[2019-04-21] MEDS: levoFLOXacin 500 MG/100 ML 500 MG/100 ML BAG IVPB SCH (20:26)
[2019-04-21] MEDS: Insulin DETEMIR 100 UNIT/ML X5UNITS SQ SCH (20:40)
[2019-04-22] MEDS: Insulin LISPRO 300 UNITS/3 ML VIAL SQ SCH ×5 (00:24→20:50)
[2019-04-22] MEDS: Piperacillin/Tazobactam 3.375 GM in 0.9 % Sodium Chloride Mini Bag 100 ML IVPB SCH ×3 (00:26→15:56)
[2019-04-22 01:22] LABS: Basophils % 0.3 %; Eosinophils # 0.1 K/mcL (0.0-0.6); Eosinophils % 0.8 %; Hematocrit 36.1 % (37.5-50.1); Hemoglobin 12.1 g/dL (12.9-16.9); Immature Granulocytes % 0.5 % (0-4); Lymphocytes # 1.5 K/mcL (0.6-4.6); Lymphocytes % 23.9 %; Mean Corpuscular HGB Conc 33.5 g/dL (31.6-35.5); Mean Corpuscular Hemoglobin 30.3 pg (28.0-33.3); Mean Corpuscular Volume 90.5 fL (83.0-100.0); Mean Platelet Volume 9.8 fL (9.4-12.4); Monocytes # 0.7 K/mcL (0.0-1.3); Monocytes % 10.6 %; Platelet Count 126 K/mcL (140-400); Red Blood Count 3.99 M/mcL (4.19-5.50); Red Cell Distribution Width 13.7 % (11.5-14.5); Segmented Neutrophils % 63.9 %; White Blood Count 6.2 K/mcL (4.3-11.1)
[2019-04-22 01:30] LABS: Prothrombin Time 34.7 Seconds (9.4-12.1)
[2019-04-22 01:41] LABS: Blood Urea Nitrogen 28 mg/dL (8-23); Calcium 8.2 mg/dL (8.6-10.3); Carbon Dioxide 24 mEq/L (23-29); Chloride 107 mEq/L (98-107); Glucose 123 mg/dL (70-105); Magnesium 2.1 mg/dL (1.6-2.6); Osmolality,Calculated 291 (280-300); Potassium 4.1 mEq/L (3.5-5.1); Sodium 137 mEq/L (136-145)
[2019-04-22 01:46] LABS: BUN/Creatinine Ratio 21 (6-26); eGFR For African Americans > 60 (> 60); eGFR For Non-African Americans 50 (> 60)
[2019-04-22] MEDS ORDERED: Piperacillin/Tazobactam 3.375 GM VIAL ONE (08:29)
[2019-04-22] MEDS: Furosemide 20 MG TABLET PO SCH (08:31)
[2019-04-22] MEDS ORDERED: *HR* Warfarin 3 MG TABLET PO ONE (18:00)
[2019-04-22] MEDS: Diltiazem CD (24hr) 180 MG CAPSULE PO SCH (18:23)
[2019-04-22] MEDS: levoFLOXacin 500 MG/100 ML 500 MG/100 ML BAG IVPB SCH (18:25)
--- NOTE | 2019-04-22 20:29 | Internal Med Progress Note ---
Hospitalist Progress Note - Encounter Date of Encounter: 04/22/19 Time of Encounter: 10:45 - Subjective Interval History: Ms Mora is complaining of acute on chronic bilateral knee pain he stated that he fell 3 weeks ago but never sought care. He is agreeable to placement to ECF if indicated for continued rehabilitation. Per case management is currently placed within discharge. He also reports chronic chest pain for 20 years which he describes as intermittent lasting a few hours when asked if he ever brought this up with his primary care physician Patient said no. Of note he presented with mildly troponin elevation. Upon review of his prior hospital records his last nuclear stress test was in 2014. GEN: Denies fever, chills or malaise HEENT: Denies headache blurriness, or dysphagia RESP: Denies SOB or cough CV: Denies chest pain or palpitations GI: Denies Nausea, vomiting, diarrhea or constipation Reviewed current in hospital medications with modifications see orders Reviewed Routine labs - Exam Vitals: Temp Pulse Resp BP Pulse Ox 98.2 F 77 18 118/71 93 04/22/19 16:55 04/22/19 16:55 04/22/19 16:55 04/22/19 16:55 04/22/19 16:55 Exam: GEN: NAD, A&O x 3, Pleasant and conversant, at the bedside SKIN: [place] warm acyanotic not jaundice HEART: RRR, no murmurs LUNGS: CTA no wheeze or crackles, overall non labored ABDOMEN; Soft, non tender or distended, BS x 4 normactive EXT: No LE edema, Pedal pulses 1+, radial pulses 2+, bilateral knee osteoarthritis noted with joint space narrowing left knee slightly swollen no appreciable warmth or erythema : Parada catheter noted with cloudy concentrated ahsan colored urine in the reservoir PSYCH: Mood and affect is appropriate - Assessment and Plan (1) Knee pain, bilateral Current Visit: Yes Status: Acute Assessment and Plan: Three-view radiograph of the knees does reveal as expected see findings below. We will recommend patient follow-up with his primary care physician for possible knee arthroplasty if the pain persist XR/XR knee BI 3V IMPRESSION: 1. 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 2. Moderate to severe tricompartmental osteoarthritis of the left knee with joint effusion. (2) Urinary tract infection Current Visit: Yes Status: Acute Assessment and Plan: UA revealed positive nitrite urine culture revealed gram-negative gloria result pansensitive Escherichia coli patient on levofloxacin dc Zosyn (3) Sepsis Current Visit: Yes Status: Acute Assessment and Plan: Resolved, secondary to Escherichia coli UTI see plan as above with levofloxacin discontinue Zosyn blood culture negative for 3 days (4) Acute encephalopathy Current Visit: Yes Status: Acute Assessment and Plan: In the setting of sepsis which is been attributed to UTI based on UA. CT head was unremarkable would check ammonia level and TSH suggestive of euthyroid sick syndrome, his encephalopathy is now resolved back to baseline (5) Troponin I above reference range Current Visit: Yes Status: Acute Assessment and Plan: Troponin 0.08 on admission, trended up to 0.14 patient denies any chest pain this is in the setting of severe sepsis. Initially thought Patient will benefit from outpatient ischemic workup upon discharge once his acute sepsis has resolved, however today he is complaining of chest pain for 20 years intermittently he never discussed this with his primary care physician per our conversation today we will consult cardiology appreciated input (6) A-fib Current Visit: Yes Status: Acute Assessment and Plan: On telemetry rate controlled he is on warfarin, INR admission is 2.8-2.7-3 and diltiazem continue telemetry, pharmacy to dose warfarin given his acute stay, appreciate the input (7) DAMION (acute kidney injury) Current Visit: Yes Status: Acute Assessment and Plan: In the setting of severe sepsis was started on gentle hydration at 50 ML's LR, trend BMP, resolved with IV hydration will DC hydration encouraged po intake however worsened again today 1.36 since discontinuation of IV hydration likely new baseline. If left Heart catheterization is planned will follow hydrate patient (8) DVT prophylaxis Current Visit: Yes Status: Acute Assessment and Plan: On warfarin INR is therapeutic, although trending up in the setting of antimicrobial therapy (9) Euthyroid sick syndrome Current Visit: Yes Status: Acute Assessment and Plan: TSH is suppressed 0.24 with normal free T4 0.7 with low free T3 1 0.74 in the setting of sepsis patient will need thyroid function test repeated in the next 3-6 months - Time Spent with Patient Total time spent is greater than 50% in coordination of care (as documented) at patient's floor/unit and/or counseling patient: Internal Medicine: Result - Labs CBC & Chem 7: 04/22/19 01:13 04/22/19 01:13 Labs: Short CBC 04/22/19 Range/Units 01:13 WBC 6.2 (4.3-11.1) K/mcL Hgb 12.1 L (12.9-16.9) g/dL Hct 36.1 L (37.5-50.1) % Plt Count 126 L (140-400) K/mcL Neutrophils # 4.0 (1.6-8.9) K/mcL BMP 04/22/19 01:13 Sodium 137 Potassium 4.1 Chloride 107 Carbon Dioxide 24 BUN 28 H Creatinine 1.36 H Glucose 123 H Calcium 8.2 L - ABG Interpretation ABG results: PT/INR, D-dimer PT 34.7 Seconds (9.4-12.1) H 04/22/19 01:13 - Impressions Impressions Abdomen/Pelvis CT 04/20/19 14:14 IMPRESSION: 1. Mild ileus involving the small bowel in the left abdomen. No evidence of bowel obstruction or perforation. 2. Prostatomegaly. 3. Mild nonspecific mesenteric thickening with scattered mildly prominent lymph nodes. D/ / 04/20/2019 15:37:53 Maryellen Menjivar MD / [facility] Interpreting Provider: Maryellen Menjivar MD Knee X-Ray 04/22/19 10:47 IMPRESSION: 1. 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 2. Moderate to severe tricompartmental osteoarthritis of the left knee with joint effusion. D/ / 04/22/2019 15:25:04 George Chaney MD / corie Interpreting Provider: George Chaney MD Consult Discharge Plan - Plan Referrals: Dino Harden DO [Primary Care Provider] - 05/04/19 11:30 am ___ (2) Urinary tract infection Qualifiers: Urinary tract infection type: acute cystitis Hematuria presence: with hematuria Qualified Code(s): N30.01 - Acute cystitis with hematuria (3) Sepsis Qualifiers: Sepsis type: sepsis due to unspecified organism Sepsis acute organ dysfunction status: with acute organ dysfunction Severe sepsis acute organ dysfunction type: encephalopathy Severe sepsis shock status: without septic shock Qualified Code(s): A41.9 - Sepsis, unspecified organism; R65.20 - Severe sepsis without septic shock; G93.40 - Encephalopathy, unspecified (6) A-fib Qualifiers: Atrial fibrillation type: paroxysmal Qualified Code(s): I48.0 - Paroxysmal atrial fibrillation
[2019-04-22] MEDS: Lactobacillus 1 EACH CAP.SPRINK PO SCH (20:50)
[2019-04-22] MEDS: Insulin DETEMIR 100 UNIT/ML X5UNITS SQ SCH (20:55)
[2019-04-23 05:24] LABS: BUN/Creatinine Ratio 19 (6-26); Blood Urea Nitrogen 25 mg/dL (8-23); Calcium 8.5 mg/dL (8.6-10.3); Carbon Dioxide 25 mEq/L (23-29); Chloride 105 mEq/L (98-107); Glucose 102 mg/dL (70-105); Osmolality,Calculated 289 (280-300); Potassium 3.9 mEq/L (3.5-5.1); Sodium 137 mEq/L (136-145); eGFR For African Americans > 60 (> 60); eGFR For Non-African Americans 52 (> 60)
[2019-04-23 05:44] LABS: Basophils % 0.2 %; Eosinophils # 0.1 K/mcL (0.0-0.6); Eosinophils % 1.4 %; Hemoglobin 11.6 g/dL (12.9-16.9); Immature Granulocytes % 0.4 % (0-4); Lymphocytes # 1.4 K/mcL (0.6-4.6); Lymphocytes % 24.2 %; Mean Corpuscular HGB Conc 32.2 g/dL (31.6-35.5); Monocytes # 0.5 K/mcL (0.0-1.3); Monocytes % 9.4 %; Neutrophils # 3.6 K/mcL (1.6-8.9); Platelet Count 171 K/mcL (140-400); Red Blood Count 3.87 M/mcL (4.19-5.50); Red Cell Distribution Width 13.9 % (11.5-14.5); Segmented Neutrophils % 64.4 %; White Blood Count 5.6 K/mcL (4.3-11.1)
[2019-04-23 05:57] LABS: INR 3.2; Prothrombin Time 36.4 Seconds (9.4-12.1)
[2019-04-23] MEDS: Insulin LISPRO 300 UNITS/3 ML VIAL SQ SCH ×4 (08:18→22:12)
--- NOTE | 2019-04-23 09:19 | Cardiology Consult Note ---
Date of Encounter: 04/23/19 Time of Encounter: 08:00 Assessment and Plan (1) Elevated troponin I measurement Current Visit: No Status: Acute Mild, adynamic troponin elevation (0.08, 0.14 x2) in the setting of UTI and afib with RVR. This is likely secondary to demand ischemia. No indication for cardiac rehab. Patient describes atypical chest discomfort that has been persistent for 20 years. TTE pending. Of note, prior TTE demonstrated low normal LVEF. Continue CCB. On coumadin for Afib. Will add low dose statin. Anticipate s/o if no significant findings on TTE. (2) A-fib Current Visit: Yes Status: Acute Hx of Atrial fibrillation/flutter on Coumadin. RVR upon admission in the setting of UTI, rates are now controlled. 12 hour tele: avg HR=88. Aflutter upon exam today. Continue CCB for rate control. Continue coumadin for AC; CHA2Ds Vasc=4. Qualifiers: Atrial fibrillation type: chronic Qualified Code(s): I48.2 - Chronic atrial fibrillation Discussion w patient/family: The assessment and plan as outlined above was discussed with the patient and/or family members who expressed understanding and agreement. All questions were answered. Thank you for involving us in the care of your patient. Please call with any questions. The patient will be discussed and reviewed with Dr. Montez; changes to be made accordingly. History of Present Illness Consult date: 04/24/19 Requesting physician: Victoria Marie Consult reason: Chest pain Chief complaint: AMS History of present illness: Mr. Mora is a 83 year old male with PMHx significant of afib/flutter on coumadin, prostate CA, DMII, HTN who presented to the ED with apparent AMS. Upon exam, patient is disoriented and pleasantly confused to location, time. Per reports, his brought him in the ED to be evaluated for possible stroke. She also reported subjective fevers and chills at home. Recent viral type symptoms and he was given oral antibiotics. Upon arrival to the ED he was found to have a UTI. ECG demonstrated atrial fibrillation with RVR. Troponin was elevated at 0.08 which prompted Cardiology consult. Prior CV testing: TTE 04/26/16: LVEF appears low normal (poor quality study). Mildly dilated LV, RV appears dilated with reduced function. NST 05/10/15: perfusion imaging negative for ischemia or infarct, gated EF=57% with dilated LV Past Med Surg Social Fam HX - Past Medical History Attestation: Yes The following information was validated with the patient. Source: patient Medical history: atrial fibrillation, hypertension, kidney stones Additional medical history: Prostate CA Psychiatric history: no psych history - Past Surgical History Surgical History: other Additional surgical history: precancrous spot on cheek and head removed, spinal FX in 1970s, kidney stone - Social History Smoking Status: Former smoker Smokeless Tobacco Status: No Alcohol use: none Drug use: none - Family History Mother Hx Family Cardiac Disorders: Yes (HTN) Brother Living Status: Still Living Hx Family Cancer: Yes (Prostate) Medications and Allergies Diltiazem CD (24hr) [Cardizem CD] 180 mg PO QPM 04/20/19 [History] Fish Oil/Dha/Epa [Fish Oil 1,200 mg Fish Oil] 1 each PO DAILY 04/20/19 [History] Furosemide [Lasix] 20 mg PO DAILY 04/20/19 [History] Lisinopril [Zestril] 5 mg PO DAILY 04/20/19 [History] Oxybutynin Chloride [Ditropan XL] 15 mg PO DAILY 04/20/19 [History] Terazosin [Hytrin] 5 mg PO QPM 04/20/19 [History] Warfarin Sodium [Coumadin] 6 mg PO Q48H 04/20/19 [History] Warfarin Sodium [Coumadin] 9 mg PO Q48H 04/20/19 [History] Allergy/AdvReac Type Severity Reaction Status Date / Time No Known Drug Allergies Allergy See Verified 05/09/15 10:56 Comments All Systems Review: The remainder of the systems were reviewed and are negative - Cardiovascular Cardiovascular: as per HPI Physical Examination Vital Signs, Last 4 Hours Temp Pulse Resp BP Pulse Ox 04/23/19 07:05 98.3 F 96 18 137/79 92 General: Conversant, No Apparent Distress, Other (confused; alert to self only) HEENT: Atraumatic, Normocephaly Cardiac: Other (irregulary irregular) Lungs: Normal Breath Sounds Neuro: Alert and responsive (to self only) Abdomen: Soft Skin: No rashes noted on visualized skin Musculoskeletal: No Chest Wall Tenderness Extremities: No Edema, Normal Pulses Results 04/23/19 04:20 04/23/19 04:20 Lab Results 04/23/19 04/23/19 04/23/19 04:20 04:20 04:20 WBC 5.6 Hgb 11.6 L Hct 36.0 L Plt Count 171 INR 3.2 Sodium 137 Potassium 3.9 Chloride 105 Carbon Dioxide 25 BUN 25 H Creatinine 1.32 H Glucose 102 Calcium 8.5 L Magnesium 2.0 Active Medications Acetaminophen (Tylenol) 650 mg PO Q6H PRN PRN Reason: Fever Stop: 10/21/19 21:05 Dextrose/Water (Dextrose 50% (Syg)) 25 ml IVP AD PRN PRN Reason: Hypoglycemia Stop: 10/20/19 19:09 Diltiazem HCl (Cardizem Cd) 180 mg PO QPM MARCIA Stop: 10/21/19 18:01 Last Admin: 04/22/19 18:23 Dose: 180 mg Documented by: Furosemide (Lasix) 20 mg PO DAILY MARCIA Stop: 10/22/19 09:01 Last Admin: 04/22/19 08:31 Dose: 20 mg Documented by: Glucagon (Glucagen) 1 mg IM ONCE PRN PRN Reason: Hypoglycemia Stop: 10/20/19 19:09 Glucose (Gluctose) 15 gm PO ONCE PRN PRN Reason: Hypoglycemia Stop: 10/20/19 19:09 Glucose (Gluctose) 30 gm PO ONCE PRN PRN Reason: Hypoglycemia Stop: 10/20/19 19:09 Levofloxacin/Dextrose (Levaquin Premix 500mg/100ml) 500 mg in 100 mls @ 100 mls/hr IVPB Q24H MARCIA; Protocol Stop: 10/20/19 19:01 Last Admin: 04/22/19 18:25 Dose: 100 mls/hr Documented by: Dextrose (Dextrose 5%) 1,000 mls @ 100 mls/hr IVC .Q10H PRN PRN Reason: HYPOGLYCEMIA Stop: 10/20/19 19:09 Insulin Detemir (Levemir) 32 unit 0.25 unit/kg (32 unit) SQ HS MARCIA Stop: 10/21/19 21:01 Last Admin: 04/22/19 20:55 Dose: Not Given Documented by: Insulin Human Lispro (Humalog) 0 units SQ HS MARCIA; Protocol Stop: 10/22/19 21:01 Last Admin: 04/22/19 20:50 Dose: Not Given Documented by: Insulin Human Lispro (Humalog) 0 units SQ TIDAC [facility]; Protocol Stop: 10/22/19 16:31 Last Admin: 04/23/19 08:18 Dose: Not Given Documented by: Lactobacillus Acidophilus/Rhamnosus (Culturelle) 1 each PO BID [facility] Stop: 10/22/19 21:01 Last Admin: 04/22/19 20:50 Dose: 1 each Documented by: Lisinopril (Zestril) 5 mg PO DAILY [facility]; Protocol Stop: 10/22/19 09:01 Last Admin: 04/22/19 08:31 Dose: 5 mg Documented by: Naloxone HCl (Narcan) 0.4 mg IVP Q2MPRN PRN PRN Reason: SEE COMMENTS Stop: 10/20/19 18:11 Ondansetron HCl (Zofran) 4 mg IVP Q8HR PRN PRN Reason: Nausea And Vomiting Stop: 10/20/19 18:11 Oxybutynin Chloride (Ditropan) 5 mg PO TID [facility] Stop: 10/22/19 09:01 Last Admin: 04/22/19 20:50 Dose: 5 mg Documented by: Terazosin HCl (Hytrin) 5 mg PO QPM [facility] Stop: 10/21/19 18:01 Last Admin: 04/22/19 18:23 Dose: 5 mg Documented by: Warfarin Sodium (Coumadin Perpt) 1 each PO DAILY@1800 PRN; Protocol PRN Reason: SEE COMMENTS Stop: 10/21/19 18:01 - Imaging and Cardiology Stress Test: report reviewed Echo: pending, report reviewed Other Results: 12 hour tele: avg HR=87 afib/flutter - EKG Interpretation EKG results cardiology: personally reviewed Consult Discharge Plan - Plan Referrals: Dino Harden DO [Primary Care Provider] - 05/04/19 11:30 am CHADS2-VASC Score - Score Age: Greater than or equal to 75 Sex: Male CHF History: No Hypertension history: Yes Stroke/TIA/Thromboembolism Hx: No Vascular disease history: No Diabetes history: Yes Score: 4
[2019-04-23] MEDS: Lactobacillus 1 EACH CAP.SPRINK PO SCH ×2 (10:00→22:12)
[2019-04-23] MEDS: Furosemide 20 MG TABLET PO SCH (10:00)
[2019-04-23 13:04] LABS: Acinetobacter baumannii by PCR Not Detected (Not Detect); Candida albicans by PCR Not Detected (Not Detect); Candida glabrata by PCR Not Detected (Not Detect); Candida krusei by PCR Not Detected (Not Detect); Candida parapsilosis by PCR Not Detected (Not Detect); Candida tropicalis by PCR Not Detected (Not Detect); Enterobacter cloacae Cmplx PCR Not Detected (Not Detect); Enterobacteriaceae by PCR Not Detected (Not Detect); Enterococcus by PCR Not Detected (Not Detect); Escherichia coli by PCR Not Detected (Not Detect); Klebsiella oxytoca by PCR Not Detected (Not Detect); Klebsiella pneumoniae by PCR Not Detected (Not Detect); Proteus by PCR Not Detected (Not Detect); Pseudomonas aeruginosa by PCR Not Detected (Not Detect); Serratia marcescens by PCR Not Detected (Not Detect); Staphylococcus aureus by PCR Not Detected (Not Detect); Staphylococcus by PCR Not Detected (Not Detect); Streptococcus agalactiae(B)PCR Not Detected (Not Detect); Streptococcus by PCR Not Detected (Not Detect); Streptococcus pneumoniae PCR Not Detected (Not Detect); Streptococcus pyogenes (A) PCR Not Detected (Not Detect)
--- NOTE | 2019-04-23 14:18 | Internal Med Progress Note ---
Hospitalist Progress Note - Encounter Date of Encounter: 04/23/19 Time of Encounter: 13:30 - Subjective Interval History: Mr Mora reports no voiding difficulty status post discontinuation of the Parada, urine culture revealed Escherichia coli pansensitive. He was seen by the pain medicine physician for his ongoing 20 years intermittent episodes of chest pain and she recommended 2-D echo GEN: Denies fever, chills or malaise HEENT: Denies headache blurriness, or dysphagia RESP: Denies SOB or cough CV: Denies chest pain or palpitations GI: Denies Nausea, vomiting, diarrhea or constipation Reviewed current in hospital medications with modifications see orders Reviewed Routine labs - Exam Vitals: Temp Pulse Resp BP Pulse Ox 98.2 F 69 18 107/65 94 04/23/19 11:19 04/23/19 11:19 04/23/19 11:19 04/23/19 11:19 04/23/19 11:19 Exam: GEN: NAD, A&O x 3, Pleasant and conversant, at the bedside SKIN: [place] warm acyanotic not jaundice HEART: Irregularly irregular rate and rhythm, no murmurs LUNGS: CTA no wheeze or crackles, overall non labored ABDOMEN; Soft, non tender or distended, BS x 4 normactive EXT: No LE edema, Pedal pulses 1+, radial pulses 2+, bilateral knee osteoarthritis noted with joint space narrowing left knee slightly swollen no appreciable warmth or erythema PSYCH: Mood and affect is appropriate - Assessment and Plan (1) Troponin I above reference range Current Visit: Yes Status: Acute Assessment and Plan: Troponin 0.08 on admission, trended up to 0.14 patient denies any chest pain this is in the setting of severe sepsis. Initially thought Patient will benefit from outpatient ischemic workup upon discharge once his acute sepsis has resolved, yesterday patient reported chest pain for 20 years intermittently he never discussed this with his primary care physician, was evaluated by cardiology recommended echo was patient's echo is unremarkable he could be discharged to [facility]. Continue to follow up outpatient with cardiology if need be for further ischemic workup (2) Urinary tract infection Current Visit: Yes Status: Acute Assessment and Plan: UA revealed positive nitrite urine culture revealed gram-negative gloria result pansensitive Escherichia coli patient on levofloxacin dc Zosyn will likely discontinue levofloxacin at the 5 days of treatment (3) Knee pain, bilateral Current Visit: Yes Status: Acute Assessment and Plan: Three-view radiograph of the knees does reveal as expected see findings below. We will recommend patient follow-up with his primary care physician for possible knee arthroplasty if the pain persist, no knee pain complaints today XR/XR knee BI 3V IMPRESSION: 1. 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 2. Moderate to severe tricompartmental osteoarthritis of the left knee with joint effusion. (4) Sepsis Current Visit: Yes Status: Acute Assessment and Plan: Resolved, secondary to Escherichia coli UTI see plan as above with levofloxacin discontinue Zosyn blood culture 1 out of 2 positive for gram-negative gloria sensitive pending (5) Acute encephalopathy Current Visit: Yes Status: Acute Assessment and Plan: In the setting of sepsis which is been attributed to UTI based on UA. CT head was unremarkable would check ammonia level and TSH suggestive of euthyroid sick syndrome, his encephalopathy is now resolved back to baseline (6) A-fib Current Visit: Yes Status: Acute Assessment and Plan: On telemetry rate controlled he is on warfarin, INR admission is 2.8-2.7-3 and diltiazem continue telemetry, pharmacy to dose warfarin given his acute stay, appreciate the input (7) DAMION (acute kidney injury) Current Visit: Yes Status: Acute Assessment and Plan: In the setting of severe sepsis was started on gentle hydration at 50 ML's LR, trend BMP, resolved with IV hydration will DC hydration encouraged po intake however worsened again today 1.36 since discontinuation of IV hydration likely new baseline. Serum creatinine stable 1.32 (8) DVT prophylaxis Current Visit: Yes Status: Acute Assessment and Plan: On warfarin INR is therapeutic, although trending up in the setting of antimicrobial therapy (9) Euthyroid sick syndrome Current Visit: Yes Status: Acute Assessment and Plan: TSH is suppressed 0.24 with normal free T4 0.7 with low free T3 1 0.74 in the setting of sepsis patient will need thyroid function test repeated in the next 3-6 months - Time Spent with Patient Total time spent is greater than 50% in coordination of care (as documented) at patient's floor/unit and/or counseling patient: Internal Medicine: Result - Labs CBC & Chem 7: 04/23/19 04:20 04/23/19 04:20 Labs: Short CBC 04/23/19 Range/Units 04:20 WBC 5.6 (4.3-11.1) K/mcL Hgb 11.6 L (12.9-16.9) g/dL Hct 36.0 L (37.5-50.1) % Plt Count 171 (140-400) K/mcL Neutrophils # 3.6 (1.6-8.9) K/mcL BMP 04/23/19 04:20 Sodium 137 Potassium 3.9 Chloride 105 Carbon Dioxide 25 BUN 25 H Creatinine 1.32 H Glucose 102 Calcium 8.5 L - ABG Interpretation ABG results: PT/INR, D-dimer PT 36.4 Seconds (9.4-12.1) H 04/23/19 04:20 - Impressions Impressions Knee X-Ray 04/22/19 10:47 IMPRESSION: 1. 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 2. Moderate to severe tricompartmental osteoarthritis of the left knee with joint effusion. D/ / 04/22/2019 15:25:04 George Chaney MD / corie Interpreting Provider: George Chaney MD Consult Discharge Plan - Plan Referrals: Dino Harden DO [Primary Care Provider] - 05/04/19 11:30 am (2) Urinary tract infection Qualifiers: Urinary tract infection type: acute cystitis Hematuria presence: with hematuria Qualified Code(s): N30.01 - Acute cystitis with hematuria (4) Sepsis Qualifiers: Sepsis type: Escherichia coli Sepsis acute organ dysfunction status: with acute organ dysfunction Severe sepsis acute organ dysfunction type: encephalopathy Severe sepsis shock status: without septic shock Qualified Code(s): A41.51 - Sepsis due to Escherichia coli [E. coli]; R65.20 - Severe sepsis without septic shock; G93.41 - Metabolic encephalopathy (6) A-fib Qualifiers: Atrial fibrillation type: chronic Qualified Code(s): I48.2 - Chronic atrial fibrillation
[2019-04-23] MEDS: Diltiazem CD (24hr) 180 MG CAPSULE PO SCH (17:21)
[2019-04-23] MEDS: levoFLOXacin 500 MG/100 ML 500 MG/100 ML BAG IVPB SCH (17:22)
[2019-04-23] MEDS ORDERED: *HR* Warfarin 3 MG TABLET PO ONE (18:00)
[2019-04-23] MEDS: Acetaminophen 325 MG TABLET PO PRN (22:11)
[2019-04-23] MEDS: Insulin DETEMIR 100 UNIT/ML X5UNITS SQ SCH (22:13)
[2019-04-24 01:38] LABS: Basophils % 0.3 %; Eosinophils # 0.1 K/mcL (0.0-0.6); Hematocrit 36.4 % (37.5-50.1); Hemoglobin 12.1 g/dL (12.9-16.9); Immature Granulocytes % 0.5 % (0-4); Lymphocytes # 1.3 K/mcL (0.6-4.6); Lymphocytes % 21.1 %; Mean Corpuscular HGB Conc 33.2 g/dL (31.6-35.5); Mean Corpuscular Hemoglobin 30.2 pg (28.0-33.3); Mean Corpuscular Volume 90.8 fL (83.0-100.0); Mean Platelet Volume 9.7 fL (9.4-12.4); Monocytes # 0.6 K/mcL (0.0-1.3); Neutrophils # 4.2 K/mcL (1.6-8.9); Platelet Count 191 K/mcL (140-400); Red Blood Count 4.01 M/mcL (4.19-5.50); Red Cell Distribution Width 13.9 % (11.5-14.5); Segmented Neutrophils % 67.1 %; White Blood Count 6.3 K/mcL (4.3-11.1)
[2019-04-24 01:46] LABS: INR 2.7; Prothrombin Time 30.8 Seconds (9.4-12.1)
[2019-04-24 01:57] LABS: BUN/Creatinine Ratio 19 (6-26); Blood Urea Nitrogen 26 mg/dL (8-23); Calcium 8.7 mg/dL (8.6-10.3); Carbon Dioxide 26 mEq/L (23-29); Chloride 108 mEq/L (98-107); Potassium 4.1 mEq/L (3.5-5.1); Sodium 138 mEq/L (136-145); eGFR For African Americans > 60 (> 60); eGFR For Non-African Americans 51 (> 60)
[2019-04-24 02:41] LABS: Glucose 121 mg/dL (70-105); Osmolality,Calculated 292 (280-300)
[2019-04-24] MEDS: Lactobacillus 1 EACH CAP.SPRINK PO SCH ×2 (07:48→20:54)
[2019-04-24] MEDS: Furosemide 20 MG TABLET PO SCH (07:48)
[2019-04-24] MEDS: Insulin LISPRO 300 UNITS/3 ML VIAL SQ SCH ×4 (07:49→20:55)
--- NOTE | 2019-04-24 12:04 | Event Note ---
Date of Encounter: 04/24/19 Time of Encounter: 12:02 - Cardiology Event Note Mild, adynamic troponin elevation (0.08, 0.14 x2) in the setting of UTI and afib with RVR, likely secondary to demand ischemia. No indication for cardiac rehab. TTE ordered today. Of note, prior TTE demonstrated low normal LVEF. Continue CCB. On coumadin for Afib. Anticipate s/o if no significant findings on TTE.
--- NOTE | 2019-04-24 17:26 | Internal Med Progress Note ---
Hospitalist Progress Note - Encounter Date of Encounter: 04/24/19 Time of Encounter: 13:45 - Subjective Interval History: Mr Mora stated he was napping during the encounter he awakes response to commands appropriately and then falls back asleep GEN: Denies fever, chills or malaise HEENT: Denies headache blurriness, or dysphagia RESP: Denies SOB or cough CV: Denies chest pain or palpitations GI: Denies Nausea, vomiting, diarrhea or constipation Reviewed current in hospital medications with modifications see orders Reviewed Routine labs - Exam Vitals: Temp Pulse Resp BP Pulse Ox 99.3 F 80 20 125/74 90 04/24/19 16:20 04/24/19 16:20 04/24/19 16:20 04/24/19 16:20 04/24/19 16:20 Exam: GEN: Somnolent today awakes on verbal command but could hardly stay up SKIN: [place] warm acyanotic not jaundice HEART: Irregularly irregular rate and rhythm, no murmurs LUNGS: CTA no wheeze or crackles, overall non labored ABDOMEN; Soft, non tender or distended, BS x 4 normactive EXT: No LE edema, Pedal pulses 1+, radial pulses 2+, bilateral knee osteoarthritis noted with joint space narrowing left knee slightly swollen no appreciable warmth or erythema PSYCH: Deferred - Assessment and Plan (1) Troponin I above reference range Current Visit: Yes Status: Acute Assessment and Plan: Troponin 0.08 on admission, trended up to 0.14 patient denies any chest pain this is in the setting of severe sepsis. Initially thought Patient will benefit from outpatient ischemic workup upon discharge once his acute sepsis has resolved, yesterday patient reported chest pain for 20 years intermittently he never discussed this with his primary care physician, was evaluated by cardiology recommended echo was patient's echo is unremarkable he could be discharged to [facility]. This echo was not ordered yesterday will be done tomorrow. He may Continue to follow up outpatient with cardiology if need be for further ischemic workup (2) Urinary tract infection Current Visit: Yes Status: Acute Assessment and Plan: UA revealed positive nitrite urine culture revealed gram-negative gloria result pansensitive Escherichia coli patient on levofloxacin dc Zosyn will likely discontinue levofloxacin at the 5 days of treatment (3) Sepsis Current Visit: Yes Status: Acute Assessment and Plan: Resolved, secondary to Escherichia coli UTI see plan as above with levofloxacin discontinue Zosyn blood culture 1 out of 2 positive for gram-negative gloria sensitive pending (4) Knee pain, bilateral Current Visit: Yes Status: Acute Assessment and Plan: Three-view radiograph of the knees does reveal as expected see findings below. We will recommend patient follow-up with his primary care physician for possible knee arthroplasty if the pain persist, no knee pain complaints today XR/XR knee BI 3V IMPRESSION: 1. 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 2. Moderate to severe tricompartmental osteoarthritis of the left knee with joint effusion. (5) Acute encephalopathy Current Visit: Yes Status: Acute Assessment and Plan: In the setting of sepsis which is been attributed to UTI based on UA. CT head was unremarkable would check ammonia level and TSH suggestive of euthyroid sick syndrome, his encephalopathy is now resolved back to baseline. He was somnolent today but he stated he was napping (6) A-fib Current Visit: Yes Status: Acute Assessment and Plan: On telemetry rate controlled he is on warfarin, INR admission is 2.8-2.7-3, dose was held yesterday today's INR is 2.7 per discussion with pharmacist will resume warfarin 6 mg today and diltiazem continue telemetry, pharmacy to dose warfarin given his acute stay, appreciate the input (7) DAMION (acute kidney injury) Current Visit: Yes Status: Acute Assessment and Plan: In the setting of severe sepsis was started on gentle hydration at 50 ML's LR, trend BMP, resolved with IV hydration will DC hydration encouraged po intake however worsened again today 1.36 since discontinuation of IV hydration likely new baseline. Serum creatinine stable 1.32-1.35 likely new baseline (8) DVT prophylaxis Current Visit: Yes Status: Acute Assessment and Plan: On warfarin INR is therapeutic (9) Euthyroid sick syndrome Current Visit: Yes Status: Acute Assessment and Plan: TSH is suppressed 0.24 with normal free T4 0.7 with low free T3 1 0.74 in the setting of sepsis patient will need thyroid function test repeated in the next 3-6 months - Time Spent with Patient Total time spent is greater than 50% in coordination of care (as documented) at patient's floor/unit and/or counseling patient: Internal Medicine: Result - Labs CBC & Chem 7: 04/24/19 01:07 04/24/19 01:07 Labs: Short CBC 04/24/19 Range/Units 01:07 WBC 6.3 (4.3-11.1) K/mcL Hgb 12.1 L (12.9-16.9) g/dL Hct 36.4 L (37.5-50.1) % Plt Count 191 (140-400) K/mcL Neutrophils # 4.2 (1.6-8.9) K/mcL BMP 04/24/19 01:07 Sodium 138 Potassium 4.1 Chloride 108 H Carbon Dioxide 26 BUN 26 H Creatinine 1.35 H Glucose 121 H Calcium 8.7 - ABG Interpretation ABG results: PT/INR, D-dimer PT 30.8 Seconds (9.4-12.1) H 04/24/19 01:07 Consult Discharge Plan - Plan Referrals: Dino Harden DO [Primary Care Provider] - 05/04/19 11:30 am (2) Urinary tract infection Qualifiers: Urinary tract infection type: acute cystitis Hematuria presence: with hematuria Qualified Code(s): N30.01 - Acute cystitis with hematuria (3) Sepsis Qualifiers: Sepsis type: Escherichia coli Sepsis acute organ dysfunction status: with acute organ dysfunction Severe sepsis acute organ dysfunction type: encephalopathy Severe sepsis shock status: without septic shock Qualified Code(s): A41.51 - Sepsis due to Escherichia coli [E. coli]; R65.20 - Severe sepsis without septic shock; G93.41 - Metabolic encephalopathy (6) A-fib Qualifiers: Atrial fibrillation type: chronic Qualified Code(s): I48.2 - Chronic atrial fibrillation
[2019-04-24] MEDS: Diltiazem CD (24hr) 180 MG CAPSULE PO SCH (17:31)
[2019-04-24] MEDS ORDERED: *HR* Warfarin 3 MG TABLET PO ONE (18:00)
[2019-04-24] MEDS: Acetaminophen 325 MG TABLET PO PRN (20:54)
[2019-04-24] MEDS: Insulin DETEMIR 100 UNIT/ML X5UNITS SQ SCH (20:55)
[2019-04-25 00:56] LABS: Basophils % 0.4 %; Eosinophils # 0.1 K/mcL (0.0-0.6); Eosinophils % 1.3 %; Hematocrit 36.6 % (37.5-50.1); Hemoglobin 11.9 g/dL (12.9-16.9); Immature Granulocytes % 0.6 % (0-4); Lymphocytes # 1.8 K/mcL (0.6-4.6); Lymphocytes % 25.4 %; Mean Corpuscular HGB Conc 32.5 g/dL (31.6-35.5); Mean Corpuscular Hemoglobin 29.6 pg (28.0-33.3); Mean Platelet Volume 9.6 fL (9.4-12.4); Monocytes # 0.7 K/mcL (0.0-1.3); Monocytes % 10.1 %; Neutrophils # 4.3 K/mcL (1.6-8.9); Platelet Count 197 K/mcL (140-400); Red Blood Count 4.02 M/mcL (4.19-5.50); Red Cell Distribution Width 13.7 % (11.5-14.5); Segmented Neutrophils % 62.2 %; White Blood Count 6.9 K/mcL (4.3-11.1)
[2019-04-25 01:04] LABS: INR 2.5; Prothrombin Time 28.4 Seconds (9.4-12.1)
[2019-04-25 01:15] LABS: BUN/Creatinine Ratio 23 (6-26); Blood Urea Nitrogen 28 mg/dL (8-23); Calcium 8.5 mg/dL (8.6-10.3); Carbon Dioxide 25 mEq/L (23-29); Chloride 104 mEq/L (98-107); Glucose 120 mg/dL (70-105); Osmolality,Calculated 289 (280-300); Potassium 4.3 mEq/L (3.5-5.1); Sodium 136 mEq/L (136-145); eGFR For African Americans > 60 (> 60); eGFR For Non-African Americans 56 (> 60)
[2019-04-25] MEDS: Furosemide 20 MG TABLET PO SCH (07:45)
[2019-04-25] MEDS: Lactobacillus 1 EACH CAP.SPRINK PO SCH (07:45)
[2019-04-25] MEDS: Insulin LISPRO 300 UNITS/3 ML VIAL SQ SCH ×3 (07:49→16:36)
[2019-04-25] MEDS ORDERED: levoFLOXacin 750 MG/150 ML 750 MG/150 ML BAG IVPB SCH (09:00)
[2019-04-25] MEDS ORDERED: Perflutren Lipid Microsphere 1.3 ML in 0.9 % Sodium Chloride 8.7 ML IVP ONE (14:40)
--- NOTE | 2019-04-25 15:21 | Event Note ---
Date of Encounter: 04/25/19 Time of Encounter: 13:00 - Cardiology Event Note Cardiology monitoring peripherally for echocardiogram in setting of mild troponin atrial fibrillation with RVR. HR remains controlled. Call with changes or questions.
[2019-04-25 16:24] VITALS: BP 121/82
[2019-04-25] MEDS ORDERED: FLU Vac QV 19-20 (6Month+)/PF 0.5 ML SYRINGE IM ONE (16:41)
--- NOTE | 2019-04-25 16:47 | Discharge Summary ---
- NOTES TO OUTPATIENT PROVIDER Notes to Outpatient Provider: Post hospital discharge for sepsis admitted to Escherichia coli UTI. Orders not resulted at time of discharge: Pending orders 04/20/19 14:10 Culture,Blood [BC] Stat 04/25/19 08:06 Culture,Blood [BC] Stat Date of Encounter: 04/25/19 Time of Encounter: 16:45 - Discharge Diagnosis (1) Troponin I above reference range Priority: Primary Status: Acute Assessment and Plan: Patient had a 2-D echo which was unrevealing. Troponin 0.08 on admission, trended up to 0.14 patient denies any chest pain this is in the setting of severe sepsis. Initially thought Patient will benefit from outpatient ischemic workup upon discharge once his acute sepsis has resolved, yesterday patient reported chest pain for 20 years intermittently he never discussed this with his primary care physician, was evaluated by cardiology recommended echo was patient's echo is unremarkable he could be discharged to [facility]. This echo was not ordered yesterday will be done tomorrow. He may Continue to follow up outpatient with cardiology if need be for further ischemic workup (2) Urinary tract infection Priority: Primary Status: Acute Assessment and Plan: Patient was successfully treated for Escherichia coli UTI UA revealed positive nitrite urine culture revealed gram-negative gloria result pansensitive Escherichia coli patient on levofloxacin dc Zosyn will likely discontinue levofloxacin at the 5 days of treatment Qualifiers: Urinary tract infection type: acute cystitis Hematuria presence: with hematuria Qualified Code(s): N30.01 - Acute cystitis with hematuria (3) Sepsis Priority: Primary Status: Acute Assessment and Plan: Resolved, secondary to Escherichia coli UTI see plan as above with levofloxacin discontinue Zosyn blood culture 1 out of 2 positive for gram-negative gloria sensitive pending Qualifiers: Sepsis type: Escherichia coli Sepsis acute organ dysfunction status: with acute organ dysfunction Severe sepsis acute organ dysfunction type: encephalopathy Severe sepsis shock status: without septic shock Qualified Code(s): A41.51 - Sepsis due to Escherichia coli [E. coli]; R65.20 - Severe sepsis without septic shock; G93.41 - Metabolic encephalopathy (4) Knee pain, bilateral Priority: Secondary Status: Acute Assessment and Plan: Discharge to [facility] for continued rehabilitation Three-view radiograph of the knees does reveal as expected see findings below. We will recommend patient follow-up with his primary care physician for possible knee arthroplasty if the pain persist, no knee pain complaints today XR/XR knee BI 3V IMPRESSION: 1. 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 2. Moderate to severe tricompartmental osteoarthritis of the left knee with joint effusion. Qualifiers: Chronicity: chronic Qualified Code(s): M25.561 - Pain in right knee; M25.562 - Pain in left knee; G89.29 - Other chronic pain (5) Acute encephalopathy Priority: Primary Status: Acute Assessment and Plan: In the setting of sepsis which is been attributed to UTI based on UA. CT head w as unremarkable would check ammonia level and TSH suggestive of euthyroid sick syndrome, his encephalopathy is now resolved back to baseline. (6) A-fib Priority: Primary Status: Acute Assessment and Plan: On telemetry rate controlled he is on warfarin, INR admission is 2.8-2.7-3, dose was held yesterday today's INR is 2.7 per discussion with pharmacist will resume warfarin 6 mg today and diltiazem continue telemetry, pharmacy to dose warfarin given his acute stay, appreciate the input Qualifiers: Atrial fibrillation type: chronic Qualified Code(s): I48.2 - Chronic atrial fibrillation (7) DAMION (acute kidney injury) Priority: Primary Status: Acute Assessment and Plan: In the setting of severe sepsis was started on gentle hydration at 50 ML's LR, trend BMP, resolved with IV hydration will DC hydration encouraged po intake however worsened again today 1.36 since discontinuation of IV hydration likely new baseline. Serum creatinine stable 1.32-1.35 likely new baseline (8) DVT prophylaxis Priority: Secondary Status: Acute Assessment and Plan: On warfarin INR is therapeutic (9) Euthyroid sick syndrome Priority: Secondary Status: Acute Assessment and Plan: TSH is suppressed 0.24 with normal free T4 0.7 with low free T3 1 0.74 in the setting of sepsis patient will need thyroid function test repeated in the next 3-6 months Hospital course: Mr. Mora is a 83 year old male was hospitalized for acute encephalopathy which was attributed to sepsis due to UTI. Started on empiric antimycobacterial therapy urine culture revealed Escherichia coli. During this hospital stay patient had mildly elevated troponin was evaluated by cardiology. He had a 2-D echo which was unrevealing. Discharge discussed with: patient, family, nurse, social work, case management, construction safety consultant - Time Spent with Patient Total time spent providing and/or coordinating discharge services: 45 mins Specific discharge activities: Please make sure to take all your medications as prescribed and keep all follow-up doctor's appointment. Please participate in physical therapy and occupational therapy at the ECF - Discharge Medications Prescriptions: New Atorvastatin [Lipitor] 20 mg PO HS tablet Acetaminophen [Tylenol] 650 mg PO Q6H PRN tablet PRN Reason: Fever Insulin DETEMIR [Levemir] 32 unit SQ HS [id number] Insulin LISPRO [HumaLOG] 0 units SQ HS vial Continued Diltiazem CD (24hr) [Cardizem CD] 180 mg PO QPM Furosemide [Lasix] 20 mg PO DAILY Oxybutynin Chloride [Ditropan XL] 15 mg PO DAILY Terazosin [Hytrin] 5 mg PO QPM Warfarin Sodium [Coumadin] 6 mg PO Q48H Warfarin Sodium [Coumadin] 9 mg PO Q48H Lisinopril [Zestril] 5 mg PO DAILY Discontinued Fish Oil/Dha/Epa [Fish Oil 1,200 mg Fish Oil] 1 each PO DAILY Home Medications: Diltiazem CD (24hr) [Cardizem CD] 180 mg PO QPM 04/20/19 [History] Furosemide [Lasix] 20 mg PO DAILY 04/20/19 [History] Lisinopril [Zestril] 5 mg PO DAILY 04/20/19 [History] Oxybutynin Chloride [Ditropan XL] 15 mg PO DAILY 04/20/19 [History] Terazosin [Hytrin] 5 mg PO QPM 04/20/19 [History] Warfarin Sodium [Coumadin] 6 mg PO Q48H 04/20/19 [History] Warfarin Sodium [Coumadin] 9 mg PO Q48H 04/20/19 [History] Acetaminophen [Tylenol] 650 mg PO Q6H PRN tablet 04/25/19 [Rx] Atorvastatin [Lipitor] 20 mg PO HS tablet 04/25/19 [Rx] Insulin DETEMIR [Levemir] 32 unit SQ HS [id number] 04/25/19 [Rx] Insulin LISPRO [HumaLOG] 0 units SQ HS vial 04/25/19 [Rx] Allergies/Adverse Reactions: Allergy/AdvReac Type Severity Reaction Status Date / Time No Known Drug Allergies Allergy See Verified 05/09/15 10:56 Comments Date of admission: 04/20/19 17:44 Primary care physician: Dino Harden DO Consults: 04/22/19 11:53 Consult to Occupational Therapy [CONS] Routine Comment: Evaluate, develop and implement POC Reason for Consult: eval and treat Does patient have active BEDREST order?: No Is patient medically & hemodynamically stable?: Yes Consult to Physical Therapy [CONS] Routine Comment: Evaluate, develop and implement POC Reason for Consult: eval and treat Does patient have active BEDREST order?: No Is patient medically & hemodynamically stable?: Yes 04/22/19 20:27 Consult to Cardiology [CONS] Routine Comment: Consulting Provider: Cardiology Ignacia Reason for Consult: Elevated troponin, chronic intermittent chest pain for 20 years Call Completed: No Discharging clinician: Victoria Marie Anticipated date of discharge: 04/25/19 - Constitutional Vitals: Temp Pulse Resp BP Pulse Ox 97.9 F 82 18 121/82 91 04/25/19 16:19 04/25/19 16:19 04/25/19 16:19 04/25/19 16:19 04/25/19 16:19 Exam: GEN: NAD, A&O x3, pleasant and conversant and a female friend at the bedside SKIN: [place] warm acyanotic not jaundice HEART: Irregularly irregular rate and rhythm, no murmurs LUNGS: CTA no wheeze or crackles, overall non labored ABDOMEN; Soft, non tender or distended, BS x 4 normactive EXT: No LE edema, Pedal pulses 1+, radial pulses 2+ PSYCH: Mood and affect is appropriate - Patient Status Disposition: Transfer Inpatient Rehab Fac Condition: Fair Functional capacity at discharge: uses cane/walker Overall status at discharge: patient is progressing back to baseline - Discharge Instructions Follow Up With: Dino Harden DO [Primary Care Provider] - (this patient is going to [facility] no PCP appointment needed) Forms: ED Satisfaction Letter - Diet and Activity Activity: as per physical therapy Diet: low fat, low cholesterol, low salt diet
--- NOTE | 2019-04-25 16:57 | Physician Discharge Referral ---
ExtendedCare Referral Info Provider in Charge after Transfer: Other Institutional Level of Care: Intermediate - Diagnosis (1) Troponin I above reference range Priority: Primary Status: Acute (2) Urinary tract infection Priority: Primary Status: Acute (3) Sepsis Priority: Primary Status: Acute (4) Knee pain, bilateral Priority: Secondary Status: Acute (5) Acute encephalopathy Priority: Secondary Status: Acute (6) A-fib Priority: Primary Status: Acute (7) DAMION (acute kidney injury) Priority: Primary Status: Acute (8) DVT prophylaxis Priority: Secondary Status: Acute (9) Euthyroid sick syndrome Priority: Secondary Status: Acute - Transfer Medications Home Medications: Diltiazem CD (24hr) [Cardizem CD] 180 mg PO QPM 04/20/19 [History] Furosemide [Lasix] 20 mg PO DAILY 04/20/19 [History] Lisinopril [Zestril] 5 mg PO DAILY 04/20/19 [History] Oxybutynin Chloride [Ditropan XL] 15 mg PO DAILY 04/20/19 [History] Terazosin [Hytrin] 5 mg PO QPM 04/20/19 [History] Warfarin Sodium [Coumadin] 6 mg PO Q48H 04/20/19 [History] Warfarin Sodium [Coumadin] 9 mg PO Q48H 04/20/19 [History] Acetaminophen [Tylenol] 650 mg PO Q6H PRN tablet 04/25/19 [Rx] Atorvastatin [Lipitor] 20 mg PO HS tablet 04/25/19 [Rx] Insulin DETEMIR [Levemir] 32 unit SQ HS [id number] 04/25/19 [Rx] Insulin LISPRO [HumaLOG] 0 units SQ HS vial 04/25/19 [Rx] Allergies/Adverse Reactions: Allergy/AdvReac Type Severity Reaction Status Date / Time No Known Drug Allergies Allergy See Verified 05/09/15 10:56 Comments - Respiratory Orders Smoking Cessation: Smoking cessation has been advised. For more information, call the [place] Tobacco Quit Line at 8-099-HHQV-NOW. - Advance Directives Code Status: Full Code - Mobility Orders Ambulate - Rehabiliation Orders Rehab Potential: Good - Diet Orders Cardiac CERTIFICATION: I certify that the transfer of the above named patient to an Extended Care Facility is necessary for the continuing treatment of the diagnosis listed. The above information is true and accurate reflection of patient's current condition. Confidential - Redisclosure prohibited without a patient's written consent.
[2019-04-25] MEDS ORDERED: *HR* Warfarin 3 MG TABLET PO ONE (18:00)
[2019-04-25] MEDS ORDERED: levoFLOXacin 500 MG/100 ML 500 MG/100 ML BAG IVPB SCH (19:00)
== END 2019-04-25 18:19 | DRG 871 ==
LOC: EMEROOARM 13:57 → 2NNU 17:44 → SUATTDRO 17:44 → 2NNU 18:16
PROVIDERS: ADMIT Pharmacist; ATTEND Pharmacist